=== PATIENT | male | born 1975 | race Caucasian/White ===

== ENCOUNTER 2018-04-22 11:12 | Emergency (ER) | payer OTHER ==
[~2018-04-22] VITALS: Ht 167.6 cm; Wt 95.7 kg
[2018-04-22 11:19] VITALS: Ht 167.6 cm; Wt 95.7 kg
[2018-04-22 13:35] VITALS: BP 133/92
== END 2018-04-22 13:35 | disposition home or self-care (01) ==
LOC: ED 11:12
DX: K64.4 Residual hemorrhoidal skin tags (principal); K64.8 Other hemorrhoids; B37.9 Candidiasis, unspecified

== ENCOUNTER 2018-11-05 07:46 | Emergency (ER) | payer OTHER ==
[~2018-11-05] VITALS: Ht 170.2 cm; Wt 96.6 kg
[2018-11-05 07:53] VITALS: BP 127/70; Ht 170.2 cm; Wt 96.6 kg
== END 2018-11-05 08:45 | disposition home or self-care (01) ==
LOC: ED 07:46
DX: J01.90 Acute sinusitis, unspecified (principal); R51 Headache; E78.00 Pure hypercholesterolemia, unspecified
CPT/HCPCS: J1885